=== PATIENT | male | born 2000 | race Caucasian/White ===

== ENCOUNTER 2022-07-16 17:02 | Emergency (ER) | payer BC, OTHER ==
[2022-07-16 17:18] VITALS: BP 131/86; PULSE 100; RESP 18; TEMP 99.4; BMI 40.3
[2022-07-16] MEDS ORDERED: ACETAMINOPHEN 500 MG TABLET (FP) PO ONE (17:53)
[2022-07-16] MEDS ORDERED: MAG HYDROX/AL HYDROX/SIMETH 30 ML UNIT-DOSE CUP ONE (17:56)
[2022-07-16] MEDS ORDERED: ACETAMINOPHEN 500 MG TABLET (FP) ONE (17:56)
[2022-07-16] MEDS ORDERED: MAG HYDROX/AL HYDROX/SIMETH 30 ML UNIT-DOSE CUP PO ONE (17:57)
[2022-07-16 18:22] LABS: HEMATOCRIT 43.5 % (35.4-49); HEMOGLOBIN 14.9 G/dL (11.7-16.9); MCHC 34.3 g/dl (32.0-35.9); MEAN CELL VOLUME 81.7 fl (80-96); MEAN PLT VOLUME 6.5 fl (7.5-11.1); PLATELET COUNT 265.9 10^3/uL (134-434); RBC 5.32 10^6/uL (4.00-5.60); WHITE BLOOD COUNT 6.6 10^3/uL (4.0-10.8)
[2022-07-16 18:33] LABS: ALBUMIN 4.6 g/dl (3.4-5.0); BILIRUBIN,TOTAL 0.7 mg/dl (0.2-1); CALCIUM 9.5 mg/dl (8.5-10); CREATININE 0.9 mg/dl (0.55-1.3); TOT PROT 7.8 g/dl (6.4-8.2)
[2022-07-16 19:16] LABS: PLATELET ESTIMATE ADEQUATE
== END 2022-07-16 20:02 | disposition home or self-care (01) ==
LOC: FER 17:02
DX: R07.89 Other chest pain (principal)
CPT/HCPCS: 0241U-QW; 36415; 71046-TC-FY; 80053; 83690; 84484; 85025; 93005; 99285-25